=== PATIENT | female | born 1955 | race Caucasian/White ===

== ENCOUNTER 2017-05-02 07:20 | Day surgery (SDC) | payer BC ==
[~2017-05-02 07:20] MED LIST: Lactated Ringers 1,000 ML IV SCH; Lidocaine 1%/Sod Bicarbonate in NS 8.4% 1 ML Syringe PRN; Sodium Chloride 0.9% 10 ML Syringe FLUSH PRN
--- NOTE | 2017-05-02 07:56 | PCM.PREANE ---
Preanesthetic Assessment - Anesthesia/Transfusion/Family Hx Anesthesia History: Prior Anesthesia Without Reaction Family History of Anesthesia Reaction: No Transfusion History: Prior Transfusion Reaction (pulse and B/P increased) - Review of Systems General: No Symptoms Pulmonary: No Symptoms Cardiovascular: No Symptoms Gastrointestinal: Diarrhea Neurological: No Symptoms Other: Reports: Easy Bruising, Thyroid Problems - Physical Assessment NPO Status Date: 05/01/17 NPO Status Time: 00:00 Pulse: 62 O2 Sat by Pulse Oximetry: 97 Respiratory Rate: 16 Blood Pressure: 148/74 Temperature: 36.8 C Height: 1.65 m Weight: 74.644 kg ASA Class: 2 Mental Status: Alert & Oriented x3 Airway Class: Mallampati = 2 Dentition: Reports: Normal Dentition Thyro-Mental Finger Breadths: 3 Mouth Opening Finger Breadths: 3 ROM/Head Extension: Full Lungs: Clear to Auscultation, Normal Respiratory Effort Cardiovascular: Regular Rate, Regular Rhythm, No Murmurs - Allergies Allergies/Adverse Reactions: Allergies Allergy/AdvReac Type Severity Reaction Status Date / Time No Known Allergies Allergy Verified 05/01/17 12:37 - Blood Blood Available: No Product(s) Available: None - Anesthesia Plan Pre-Op Medication Ordered: Beta Emiliano Beta Emiliano: Metoprolol Med Last Dose Date: 05/02/17 Med Last Dose Time: 05:30 - Acknowledgements Anesthesia Type Planned: MAC Pt an Appropriate Candidate for the Planned Anesthesia: Yes Alternatives and Risks of Anesthesia Discussed w Pt/Guardian: Yes Pt/Guardian Understands and Agrees with Anesthesia Plan: Yes PreAnesthesia Questionnaire Cardiovascular History: Reports: High Cholesterol, Hypertension Respiratory History: Reports: None Gastrointestinal History: Reports: GERD, Other (See Below) Other Gastrointestinal History: elevated LFTs, malignant neoplasm of colon Genitourinary History: Reports: None [employer] 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: None Musculoskeletal History: Reports: None Neurological History: Reports: None Psychiatric History: Reports: None Endocrine/Metabolic History: Reports: Hypothyroidism Hematologic History: Reports: None Immunologic History: Reports: None Oncologic (Cancer) History: Reports: None Dermatologic History: Reports: None - Past Surgical History Head Surgeries/Procedures: Reports: None HEENT Surgical History: Reports: Tonsillectomy Cardiovascular Surgical History: Reports: None Respiratory Surgical History: Reports: None GI Surgical History: Reports: Appendectomy, Cholecystectomy, Colonoscopy Female Surgical History: Reports: Tubal Ligation Male Surgical History: Reports: None Endocrine Surgical History: Reports: None Neurological Surgical History: Reports: None Musculoskeletal Surgical History: Reports: None Oncologic Surgical History: Reports: None Dermatological Surgical History: Reports: None - SUBSTANCE USE Smoking Status *Q: Never Smoker Recreational Drug Use History: No - HOME MEDS Home Medications: Home Meds Aspirin 81 mg PO DAILY 05/01/17 [History] Metoprolol Tartrate [Metoprolol Tartrate] 25 mg PO BID 05/01/17 [History] Omeprazole 20 mg PO BID 05/01/17 [History] Ramipril [Ramipril] 5 mg PO DAILY 05/01/17 [History] atorvaSTATin [Lipitor] 10 mg PO ASDIRECTED 05/01/17 [History] - CURRENT (IN HOUSE) MEDS Current Meds: Current Medications Lactated Ringer's (Ringers, Lactated) 1,000 mls @ 125 mls/hr IV ASDIRECTED HORACIO Stop: 05/02/17 23:00 Lidocaine/Sodium Bicarbonate (Buffered Lidocaine 1% In Ns 8.4%) 0.25 ml .XX ONETIME PRN PRN Reason: Prior to IV Start Stop: 05/02/17 18:00 Sodium Chloride (Saline Flush) 10 ml FLUSH ASDIRECTED PRN PRN Reason: Keep Vein Open Stop: 05/02/17 18:00 Discontinued Medications Fentanyl (Sublimaze) Confirm Administered Dose 100 mcg .ROUTE .STK-MED ONE Stop: 05/02/17 08:00 Lidocaine HCl (Xylocaine-Mpf 1%) Confirm Administered Dose 4 mls @ as directed .ROUTE .STK-MED ONE Stop: 05/02/17 08:02 Midazolam HCl (Versed 1 Mg/Ml) Confirm Administered Dose 2 mg .ROUTE .STK-MED ONE Stop: 05/02/17 08:00 Propofol (Diprivan 20 Ml) Confirm Administered Dose 200 mg .ROUTE .STK-MED ONE Stop: 05/02/17 08:00
[2017-05-02] MEDS ORDERED: fentaNYL 100 MCG/2 ML SDV ONE (07:59)
[2017-05-02] MEDS ORDERED: Midazolam 1 MG/ML 2 ML SDV ONE (07:59)
[2017-05-02] MEDS ORDERED: Propofol 200 MG/20 ML SDV ONE (07:59)
[2017-05-02] MEDS ORDERED: Lidocaine 1% 4 ML ONE (08:01)
--- NOTE | 2017-05-02 09:15 | PCM.OPNOTE ---
- General Post-Op/Procedure Note Date of Surgery/Procedure: 05/02/17 Operative Procedure(s): Colonoscopy Findings: Anal tags and uncomplicated internal hemorrhoids, no anastomotic strictures. No endoscopic evidence of recurrent carcinoma. Pre Op Diagnosis: History of colon cancer Post-Op Diagnosis: Anal tags and uncomplicated internal hemorrhoids Anesthesia Technique: MAC, Moderate Sedation Primary Surgeon: Reji Benites Pathology: None EBL in mLs: 0 Complications: None Condition: Good Free Text/Narrative:: After adequate IV sedation and analgesia was obtained the patient was placed on her left side. Perianal inspection revealed internal hemorrhoids and anal tags were uncomplicated. A lubricated colonoscope was inserted into the rectum and advanced to the right colon without difficulty. The ileocolonic anastomosis was visualized and was without stricturing. The bowel preparation was excellent. The transverse colon and descending colon sigmoid colon and rectum were endoscopically normal with no polyps or mass lesions. There were no inflammatory changes in these areas. Air was removed as I finished the procedure which she tolerated well. There were no complications. I took photographs for the patient and for the medical record.
== END 2017-05-02 09:50 | disposition home or self-care (01) ==
LOC: JD.SDS 07:20
PROVIDERS: ATTEND Surgery
DX: Z08 Encounter for follow-up examination after completed treatment for malignant neoplasm (principal); K64.4 Residual hemorrhoidal skin tags; K64.8 Other hemorrhoids; E03.9 Hypothyroidism, unspecified; K21.9 Gastro-esophageal reflux disease without esophagitis; I10 Essential (primary) hypertension; E78.2 Mixed hyperlipidemia; Z85.038 Personal history of other malignant neoplasm of large intestine; Z87.891 Personal history of nicotine dependence; Z98.0 Intestinal bypass and anastomosis status; Z90.49 Acquired absence of other specified parts of digestive tract; Z90.89 Acquired absence of other organs; Z98.51 Tubal ligation status; Z98.890 Other specified postprocedural states; Z79.82 Long term (current) use of aspirin; Z79.899 Other long term (current) drug therapy
CPT/HCPCS: 45378; J2250; J3010; J7120; 00810; J2704

== ENCOUNTER 2020-11-24 07:52 | Day surgery (SDC) | payer BC ==
[~2020-11-24 07:52] MED LIST changes: +Lidocaine 1%/Sod Bicarbonate in NS 8.4% 1 ML Syringe IDERM PRN; -Lidocaine 1%/Sod Bicarbonate in NS 8.4% 1 ML Syringe PRN
[2020-11-24] MEDS: Bupivacaine 0.5%/EPINEPHrine 1:200,000 50 ML MDV ONE ×2 (09:39→10:13)
--- NOTE | 2020-11-24 15:04 | PCM.PRNOTE ---
- Free Text/Narrative Note: Date: 11/24/2020 Operation: excision of left back basal cell carcinoma Surgeon: Bran Bray MD Findings: frozen section showed BCC within specimen with no margin involvement. Detailed Report: The patient was taken to the OR and placed in right lateral decubitus position. The skin lesion on the back was a reddish, irregular lesion measuring 1.5 cm in span. This area was prepped and draped in sterile fashion. Time out was performed. 20 cc 0.5%marcaine with epinephrine was injected intradermally. An obliquely oriented ellipse of tissue was taken with gross clear margin, with tissue specimen measuring 5 x 2 cm. This was taken down to level of subcutaneous tissue. Sutures were placed in specimen to janel the superior and lateral aspects. Frozen section confirmed negative margins. The wound was closed with nylon vertical mattress sutures. Hemostasis was satisfactory. The patient tolerated the procedure well.
== END 2020-11-24 11:17 | disposition home or self-care (01) ==
LOC: JD.SDS 07:52
PROVIDERS: ATTEND Surgery
DX: C44.519 Basal cell carcinoma of skin of other part of trunk (principal); I10 Essential (primary) hypertension; E78.2 Mixed hyperlipidemia; E03.9 Hypothyroidism, unspecified; Z79.890 Hormone replacement therapy; Z79.899 Other long term (current) drug therapy; Z87.891 Personal history of nicotine dependence; Z85.038 Personal history of other malignant neoplasm of large intestine; Z98.890 Other specified postprocedural states
CPT/HCPCS: 11606; J3490

== ENCOUNTER 2020-12-12 09:13 | Emergency (ER) | payer BC ==
[2020-12-12] MEDS ORDERED: Lidocaine 1% 10 ML MDV INJECT ONE (09:34)
--- NOTE | 2020-12-12 09:40 | EDM.PDOC ---
ED HPI GENERAL MEDICAL PROBLEM - General Chief Complaint: Laceration Stated Complaint: POST SURGICAL SITE SPLIT OPEN Time Seen by Provider: 12/12/20 09:30 Source of Information: Reports: Patient, Family (spouse) History Limitations: Reports: No Limitations - History of Present Illness INITIAL COMMENTS - FREE TEXT/NARRATIVE: 65-year-old female presents to the ER for evaluation of wound dehiscence left upper mid back. She had a skin lesion removed by Dr. Bray surgically approximately 16 days ago. Sutures were removed 2 days ago. They were in place for 14 days. Last night while bending over she felt her wound opened up and appreciated to be bleeding. He placed Steri-Strips across it but cannot close the wound. At present the wound is not actively bleeding. It is not causing her any pain. However the entire wound is dehisced and is oval-shaped and approximately 4 cm in length. Onset: Sudden Onset Date: 12/11/20 Onset Time: 21:00 Duration: Hour(s):, Constant Location: Reports: Back (Surgical wound dehiscence left upper mid back) Quality: Reports: Other Severity: Mild (Minimal discomfort) Improves with: Reports: None Worsens with: Reports: None Context: Denies: Activity, Exercise, Lifting, Sick Contact, Trauma, Other Associated Symptoms: Reports: No Other Symptoms Middle Back Pain Score (Numeric/FACES): 3 - Related Data Allergies Allergy/AdvReac Type Severity Reaction Status Date / Time No Known Allergies Allergy Verified 12/12/20 09:23 Home Meds: Home Meds Metoprolol Tartrate 25 mg PO BID 05/01/17 [History] Ramipril 5 mg PO DAILY 05/01/17 [History] atorvaSTATin [Lipitor] 20 mg PO ASDIRECTED 05/01/17 [History] Levothyroxine [Synthroid] 88 mcg PO ACBREAKFAST 05/02/17 [History] Ascorbic Acid [Vitamin C] 1,000 mg PO DAILY 11/24/20 [History] Cholecalciferol (Vitamin D3) [Vitamin D3] 2,000 unit PO DAILY 11/24/20 [History] Zinc 50 mg PO DAILY 11/24/20 [History] Doxycycline [Vibra-Tabs] 100 mg PO Q12HR #16 tab 12/12/20 [Rx] Past Medical History Cardiovascular History: Reports: High Cholesterol, Hypertension Respiratory History: Reports: None Gastrointestinal History: Reports: GERD, Other (See Below) Other Gastrointestinal History: elevated LFTs, malignant neoplasm of colon Genitourinary History: Reports: None 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: 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: 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 Musculoskeletal History: Reports: None Neurological History: Reports: None Psychiatric History: Reports: None Endocrine/Metabolic History: Reports: Hypothyroidism Hematologic History: Reports: None Immunologic History: Reports: None Oncologic (Cancer) History: Reports: None Dermatologic History: Reports: None - Past Surgical History Head Surgeries/Procedures: Reports: None HEENT Surgical History: Reports: Tonsillectomy Cardiovascular Surgical History: Reports: None Respiratory Surgical History: Reports: None GI Surgical History: Reports: Appendectomy, Cholecystectomy, Colonoscopy Female Surgical History: Reports: Tubal Ligation Endocrine Surgical History: Reports: None Neurological Surgical History: Reports: None Musculoskeletal Surgical History: Reports: None Oncologic Surgical History: Reports: None Dermatological Surgical History: Reports: None Social & Family History - Tobacco Use Tobacco Use Status *Q: Never Tobacco User - Caffeine Use Caffeine Use: Reports: None - Recreational Drug Use Recreational Drug Use: No - Living Situation & Occupation Living situation: Reports: Occupation: Retired ED ROS GENERAL - Review of Systems Review Of Systems: See Below Constitutional: Denies: Fever, Chills, Malaise, Weakness, Fatigue, Decreased Appetite, Weight Loss HEENT: Reports: Glasses Respiratory: Reports: No Symptoms Cardiovascular: Reports: Blood Pressure Problem Endocrine: Reports: No Symptoms GI/Abdominal: Reports: No Symptoms : Reports: No Symptoms Musculoskeletal: Reports: Back Pain, Joint Pain (Occasional back pain occasional knees hip pain.) Skin: Reports: Other Neurological: Reports: No Symptoms Psychiatric: Reports: No Symptoms (Skin wound dehiscence left upper back cyst see history of present illness) Hematologic/Lymphatic: Reports: No Symptoms Immunologic: Reports: No Symptoms ED EXAM, SKIN/RASH Exam: See Below Exam Limited By: No Limitations General Appearance: Alert, WD/WN, No Apparent Distress, Other (Vital signs reveal temperature 36.9. Heart rate 63 and sinus. Respiratory is 12 with O2 sats of 96% on room air. BP is 166/95) Eye Exam: Bilateral Eye: Normal Inspection Back Exam: Other (Patient has a oval-shaped surgical wound left upper mid back just medial to the lower portion of her scapula. Wound is opened up completely and measures approximately 4 cm in length. There is granulation tissue coming in inferiorly. The wound is clean with clean wound edges. No evidence of infec) Extremities: Normal Inspection, Normal Range of Motion, Non-Tender, No Pedal Edema Neurological: Alert, Oriented, CN II-XII Intact, Normal Cognition Psychiatric: Normal Affect, Normal Mood ED SKIN PROCEDURES - Laceration/Wound Repair Middle Mid-Posterior Medial Back Appearance: Subcutaneous, Clean, Other (Wound dehiscence left upper mid back wound--elliptical shaped) Distal NVT: Neuro & Vascular Intact Anesthetic Type: Local Local Anesthesia - Lidocaine (Xylocaine): 1% Plain Local Anesthetic Volume: Other (9 cc) Skin Prep: Saline Saline Irrigation (cc's): 100 Closed with: Sutures Lac/Wound length In cm: 4.0 Suture Size: 3-0 # of Sutures: 10 Suture Type: Nylon, Interrupted, Simple Suture Size: 3-0 # of Sutures: 4 Repaired with: Vicryl Course - Vital Signs Last Recorded V/S: Last Vital Signs Temp 36.9 C 12/12/20 09:24 Pulse 70 12/12/20 11:15 Resp 12 12/12/20 11:15 BP 130/80 12/12/20 11:15 Pulse Ox 100 12/12/20 11:15 - Orders/Labs/Meds Meds: Medications Discontinued Medications Generic Name Dose Route Start Last Admin Trade Name Wendie PRN Reason Stop Dose Admin Doxycycline Hyclate 100 mg 12/12/20 10:44 12/12/20 11:03 Doxycycline 100 Mg Cap PO 12/12/20 10:45 100 mg ONETIME ONE Administration Lidocaine HCl 20 ml 12/12/20 09:34 12/12/20 09:51 Lidocaine 1% 10 Ml Mdv INJECT 12/12/20 09:35 20 ml ONETIME ONE Administration Lidocaine HCl Confirm 12/12/20 09:52 12/12/20 10:56 Lidocaine 1% 10 Ml Mdv Administered 12/12/20 09:53 Not Given Dose 10 ml .ROUTE .[employer]els-MED ONE - Radiology Interpretation Free Text/Narrative:: 65-year-old female presents to the ED for evaluation of surgical wound dehiscence left upper mid back. Patient had a skin lesion removed by Dr. Bray general surgeon approximately 17 days ago. The sutures were left in place for 14 days removed 2 days ago. Last night while bending over she felt the wound opened up and her identified that the wound had dehisced c ompletely. It was initially bleeding when he was able to get this stopped and tried to reapproximate the wound edges with Steri-Strips but was unsuccessful. At present the wound is clean with well-defined edges with no signs of infection. It is large enough that it will require resuturing. She will then be placed on antibiotics as prophylaxis to prevent secondary infection from occurring. - Re-Assessments/Exams Free Text/Narrative Re-Assessment/Exam: 12/12/20 10:51 wound left upper back has completely dehisced. It is elliptical in shape and 4 cm in length. It is the site of a basal cell skin cancer excision 17 days ago. Wound opened up just by reaching downwards last evening at home. reports it did drain a fair amount of old looking blood and serum. Sutured the wound in 2 layers using 3-0 Vicryl suture x4 subcutaneously. Skin sutured with 3-0 Ethilon x10. She is to report to physician in 14 days for suture removal. Departure - Departure Time of Disposition: 10:41 Disposition: Home, Self-Care 01 Condition: Fair Clinical Impression: Surgical wound dehiscence Qualifiers: Encounter type: initial encounter Qualified Code(s): T81.31XA - Disruption of external operation (surgical) wound, not elsewhere classified, initial encounter - Discharge Information *PRESCRIPTION DRUG MONITORING PROGRAM REVIEWED*: Not Applicable *COPY OF PRESCRIPTION DRUG MONITORING REPORT IN PATIENT GRACE: Not Applicable Prescriptions: Doxycycline [Vibra-Tabs] 100 mg PO Q12HR #16 tab Instructions: Wound Dehiscence, [id number] Referrals: Barn Bray MD [Primary Care Provider] - Forms: ED Department Discharge Additional Instructions: Evaluation in the emergency room today in regards to surgical wound dehiscence left upper back. This is at site of previous basal cell cart cancer removal 17 days ago. Sutures were left in place for 14 days which was appropriate. Unfortunately the wound opened up last evening on its own. It is a large wound and therefore decision made to suture the wound back together which we did in the ED under local anesthetic. There are 2 layers of sutures with 4 Vicryl sutures underneath the wound called subcutaneous sutures that will keep the wound from breaking down. There are 10 sutures on the surface of the skin which will have to stay for another 14 days. Suggest follow-up at that time to have sutures removed. Treatment at home is to daily cleanse the wound with soap and water. Showering is okay. Then apply topical antibiotic such as bacitracin or Polysporin to the wound once daily and cover with a bandage to keep clean. Take oral antibiotic doxycycline 100 mg twice daily for the next 8 days to prevent secondary wound infection. You will need to stop your zinc tablet while on this medication as zinc will bind onto the antibiotic. Return to medical care if any signs of infection occur such as increased redness, swelling or obvious pus formation. Sepsis Event Note (ED) - Evaluation Sepsis Screening Result: No Definite Risk - Focused Exam Vital Signs: Vital Signs Temp Pulse Resp BP Pulse Ox 12/12/20 11:15 70 12 130/80 100 12/12/20 09:24 36.9 C 63 12 166/95 H 96
[2020-12-12] MEDS ORDERED: Lidocaine 1% 10 ML MDV ONE (09:52)
[2020-12-12] MEDS ORDERED: Doxycycline 100 MG Cap PO ONE (10:44)
== END 2020-12-12 11:17 | disposition home or self-care (01) ==
LOC: JD.ED 09:13
DX: T81.31XA Disruption of external operation (surgical) wound, not elsewhere classified, initial encounter (principal); E78.00 Pure hypercholesterolemia, unspecified; I10 Essential (primary) hypertension; E03.9 Hypothyroidism, unspecified; Z79.899 Other long term (current) drug therapy
CPT/HCPCS: 12020; 99283; A9270; 12002

== ENCOUNTER 2022-12-05 07:51 | Day surgery (SDC) | payer BC ==
[~2022-12-05 07:51] MED LIST changes: +Sodium Chloride 0.9% 10 ML Syringe FLUSH SCH
[2022-12-05] MEDS ORDERED: Midazolam 1 MG/ML 2 ML SDV ONE (08:38)
[2022-12-05] MEDS ORDERED: Propofol 200 MG/20 ML SDV ONE ×2 (08:38→08:39)
[2022-12-05] MEDS ORDERED: Lidocaine 1% 2 ML ONE (08:42)
[2022-12-05 09:17] LABS: A/G RATIO 1.1 (1-2); ALBUMIN 3.8 g/dl (3.4-5.0); ANION GAP 16.8 (5-15); BILIRUBIN TOTAL 0.7 mg/dL (0.2-1.0); CALCIUM 9.1 mg/dL (8.5-10.1); EST CRCL DRUG DOSING (CG) 47.78 mL/min; PROTEIN TOTAL,TP 7.4 g/dl (6.4-8.2)
[2022-12-05 09:19] LABS: POTASSIUM,K 4.8 mEq/L (3.5-5.1)
[2022-12-05] MEDS ORDERED: fentaNYL 100 MCG/2 ML SDV ONE (09:42)
[2022-12-05] MEDS ORDERED: Ondansetron 4 MG/2 ML SDV IVPUSH PRN (10:25)
== END 2022-12-05 10:40 | disposition home or self-care (01) ==
LOC: JD.SDS 07:51
PROVIDERS: ATTEND Surgery
DX: Z12.11 Encounter for screening for malignant neoplasm of colon (principal); K64.4 Residual hemorrhoidal skin tags; K57.30 Diverticulosis of large intestine without perforation or abscess without bleeding; K64.8 Other hemorrhoids; E03.9 Hypothyroidism, unspecified; D49.2 Neoplasm of unspecified behavior of bone, soft tissue, and skin; K21.9 Gastro-esophageal reflux disease without esophagitis; I10 Essential (primary) hypertension; E78.00 Pure hypercholesterolemia, unspecified; E83.52 Hypercalcemia; E78.2 Mixed hyperlipidemia; M81.0 Age-related osteoporosis without current pathological fracture; D64.9 Anemia, unspecified; G43.909 Migraine, unspecified, not intractable, without status migrainosus; Z90.49 Acquired absence of other specified parts of digestive tract; Z87.891 Personal history of nicotine dependence; Z85.038 Personal history of other malignant neoplasm of large intestine; Z78.0 Asymptomatic menopausal state; Z79.890 Hormone replacement therapy; Z79.899 Other long term (current) drug therapy; Z87.11 Personal history of peptic ulcer disease; Z98.0 Intestinal bypass and anastomosis status
CPT/HCPCS: 36415; 45378; 80053; 84443; J2250; J2704; J3010; J7120; J3490